=== PATIENT | male | born 1955 | race Caucasian/White ===

== ENCOUNTER → 2016-10-18 | Outpatient (CLI) | payer BC | END | disposition home or self-care (01) | LOC: CFH 12:31 | PROVIDERS: ATTEND Internal Medicine Cardiovascular Disease | DX: I35.1 Nonrheumatic aortic (valve) insufficiency (principal); I48.91 Unspecified atrial fibrillation | CPT/HCPCS: 93306 ==

== ENCOUNTER 2018-09-14 06:48 | Outpatient (CLI) | payer BC | END 2018-09-14 23:59 | disposition home or self-care (01) | LOC: CFH 06:48 | PROVIDERS: ATTEND Internal Medicine Cardiovascular Disease | DX: I08.3 Combined rheumatic disorders of mitral, aortic and tricuspid valves (principal) | CPT/HCPCS: 93306 ==

== ENCOUNTER → 2019-04-05 | Outpatient (CLI) | payer BC | END | disposition home or self-care (01) | LOC: CFH 07:39 | PROVIDERS: ATTEND Internal Medicine Cardiovascular Disease | DX: I08.3 Combined rheumatic disorders of mitral, aortic and tricuspid valves (principal); I11.9 Hypertensive heart disease without heart failure; I42.9 Cardiomyopathy, unspecified; I48.91 Unspecified atrial fibrillation | CPT/HCPCS: 93306 ==

== ENCOUNTER 2019-07-13 09:33 | Day surgery (SDC) | payer MEDICARE, BC ==
[~2019-07-13] VITALS: Ht 185.4 cm; Wt 93.2 kg
[2019-07-13] MEDS ORDERED: SODIUM CHLORIDE 0.9% 1,000 ML IV SCH ×2 (10:06→12:34)
[2019-07-13] MEDS ORDERED: PLEASE ENTER HEIGHT AND WEIGHT AND ALLERGIES MC SCH (10:10)
[2019-07-13 10:18] VITALS: BP 157/97
[2019-07-13] MEDS ORDERED: ESOM20CA PO (10:29)
[2019-07-13] MEDS ORDERED: METO25TA91 PO (10:29)
[2019-07-13] MEDS ORDERED: VALS40TA2 PO (10:29)
[2019-07-13] MEDS ORDERED: ASPIRIN 325 MG TABLET EC PO ONE (10:30)
[2019-07-13] MEDS ORDERED: ASPI-496 PO (10:30)
[2019-07-13 10:52] LABS: ANION GAP 8 mmol/L (5-15); BASOPHILS # (AUTO) 0.02 x10^3/uL (0-0.1); BASOPHILS % (AUTO) 0 % (0-1); CALCIUM 9.3 mg/dL (8.5-10.1); CHLORIDE 109 mmol/L (98-107); CREATININE 0.75 mg/dL (0.7-1.3); EOSINOPHILS # (AUTO) 0.05 x10^3/uL (0-0.4); EOSINOPHILS % (AUTO) 1 % (1-7); LYMPHOCYTES # (AUTO) 1.77 x10^3/uL (1-3.4); LYMPHOCYTES % (AUTO) 30 % (22-44); MD NO; MEAN CORPUSCULAR HEMOGLOBIN 32.8 pg (27.5-34.5); MEAN CORPUSCULAR HGB CONC 33.2 g/dL (33.2-36.2); MEAN CORPUSCULAR VOLUME 98.8 fL (81-97); MEAN PLATELET VOLUME 9.9 fL (7.4-10.4); MONOCYTES % (AUTO) 7 % (2-9); NEUTROPHILS # (AUTO) 3.67 x10^3/uL (1.8-6.8); NEUTROPHILS % (AUTO) 62 % (42-75); PLATELET COUNT 186 x10^3/uL (130-400); RED BLOOD COUNT 4.72 x10^6/uL (4.38-5.82); RED CELL DISTRIBUTION WIDTH 13.8 % (9.4-14.8)
[2019-07-13] MEDS ORDERED: PLEASE ENTER ALLERGIES MC SCH (11:00)
[2019-07-13] MEDS ORDERED: VERAPAMIL 2.5 MG/ML, 2ML ONE (11:45)
[2019-07-13] MEDS ORDERED: FENTANYL PF 100 MCG/2ML ONE (11:45)
[2019-07-13] MEDS ORDERED: TICAGRELOR 90 MG TABLET ONE (11:45)
[2019-07-13] MEDS ORDERED: MIDAZOLAM 1 MG/ML, 5ML ONE (11:45)
[2019-07-13] MEDS ORDERED: BIVALIRUDIN 250 MG ONE (11:46)
[2019-07-13] MEDS ORDERED: HEPARIN 1,000 UNITS/ML, 10ML ONE (11:46)
[2019-07-13] MEDS ORDERED: LIDOCAINE-MPF 1%, 5ML ONE (11:46)
== END 2019-07-13 14:31 | disposition home or self-care (01) ==
LOC: CACL 09:33
PROVIDERS: ATTEND Internal Medicine Cardiovascular Disease
DX: R07.9 Chest pain, unspecified (principal); I25.118 Atherosclerotic heart disease of native coronary artery with other forms of angina pectoris; I25.83 Coronary atherosclerosis due to lipid rich plaque; I42.8 Other cardiomyopathies; I48.19 Other persistent atrial fibrillation; I11.9 Hypertensive heart disease without heart failure; I47.2 Ventricular tachycardia; I25.2 Old myocardial infarction; Z79.899 Other long term (current) drug therapy
CPT/HCPCS: 36415; 80048; 85025; 93458; 99156; C1769; C1894; J1644; J2250; J3010; Q9967; J0583